=== PATIENT | male | born 1980 | race Caucasian/White ===

== ENCOUNTER 2022-02-28 10:41 | Outpatient (CLI) | payer BC, SELFPAY ==
[2022-02-28 21:50] LABS: Chloride* 95 mmol/L (96-114)
[2022-02-28 21:51] LABS: Potassium* 4.2 mmol/L (3.6-5.1); Sodium* 134 mmol/L (135-149)
[2022-02-28 21:53] LABS: Alanine Aminotransferase* 68 U/L (4-50); Alkaline Phosphatase* 69 U/L (40-150); Aspartate Amino Transferase* 36 U/L (12-35); Bilirubin Total* 0.8 mg/dL (0.1-1.5); Blood Urea Nitrogen* 22 mg/dL (5-24); Carbon Dioxide* 28 mmol/L (20-32); Cholesterol* 204 mg/dL (90-199); Creatinine* 1.1 mg/dL (0.5-1.5); Estimated Glomerular Filt Rate 86 ml/min; Glucose* 89 mg/dL (60-115); Triglycerides* 116 mg/dL (40-149)
[2022-02-28 21:54] LABS: Calcium* 9.5 mg/dL (8.4-10.6); HDL Cholesterol* 55 mg/dL (>=40); LDL Cholesterol Calculated 126 mg/dL (<100)
== END 2022-02-28 10:42 | disposition home or self-care (01) ==
PROVIDERS: PCP Emergency Medicine; Visit Provider Emergency Medicine
DX: E78.00 Pure hypercholesterolemia, unspecified (principal); I10 Essential (primary) hypertension; R79.89 Other specified abnormal findings of blood chemistry
CPT/HCPCS: 80053; 80061

== ENCOUNTER 2023-04-16 15:24 | Outpatient (CLI) | payer OTHER, SELFPAY | END 2023-04-16 15:25 | disposition home or self-care (01) | PROVIDERS: PCP Emergency Medicine; Visit Provider Emergency Medicine | DX: E78.2 Mixed hyperlipidemia (principal); I10 Essential (primary) hypertension; R74.01 Elevation of levels of liver transaminase levels | CPT/HCPCS: 80053; 80061 ==

== ENCOUNTER 2024-05-05 15:29 | Outpatient (CLI) | payer OTHER, SELFPAY | END 2024-05-05 15:30 | disposition home or self-care (01) | PROVIDERS: PCP Emergency Medicine; Visit Provider Emergency Medicine | DX: E78.2 Mixed hyperlipidemia (principal); I10 Essential (primary) hypertension; R77.8 Other specified abnormalities of plasma proteins | CPT/HCPCS: 80048; 80061; 80076 ==

== ENCOUNTER 2024-05-14 08:59 | Outpatient (CLI) | payer OTHER, SELFPAY ==
--- NOTE | 2024-05-14 10:10 | P.ANES_ITS ---
Anesthesia Charges Start Date/Time Anesthesia Start Date: 05/14/24 Anesthesia Start Time: 09:35 Stop Date/Time Anesthesia Stop Date: 05/14/24 Anesthesia Stop Time: 10:08 Coding CPT Codes CPT Codes: ANES LWR INTST NDSC NOS - 33178 ([id number]) QK - BAILING MACHINE OPERATOR 2-4 CNCRNT ANES PROC, QX - TERRITORY SALES MANAGER MEDICAL SVC W/ MED DIRECTION, P3 - PATIENT W/SEVERE SYS DISEASE
--- NOTE | 2024-05-14 10:10 | W.ANESCHARGE ---
Anesthesia Charges Start Date/Time Anesthesia Start Date: 05/14/24 Anesthesia Start Time: 09:35 Stop Date/Time Anesthesia Stop Date: 05/14/24 Anesthesia Stop Time: 10:08 Coding CPT Codes CPT Codes: ANES LWR INTST NDSC NOS - 87398 ([id number]) QK - HOME HEALTH RN 2-4 CNCRNT ANES PROC, QX - BUSINESS SPECIALIST SVC W/ MED DIRECTION, P3 - PATIENT W/SEVERE SYS DISEASE
--- NOTE | 2024-05-14 10:13 | P.ANES_ITS ---
Anesthesia Charges Start Date/Time Anesthesia Start Date: 05/14/24 Anesthesia Start Time: 09:35 Stop Date/Time Anesthesia Stop Date: 05/14/24 Anesthesia Stop Time: 10:08 Coding CPT Codes CPT Codes: ANES LWR INTST NDSC NOS - 81037 ([id number]) P3 - PATIENT W/SEVERE SYS DISEASE, QK - CYBER POLICY AND STRATEGY PLANNER 2-4 CNCRNT ANES PROC, QX - GRAPHIC PRE PRESS TRADES WORKER SVC W/ MD MED DIRECTION
--- NOTE | 2024-05-14 10:13 | W.ANESCHARGE ---
Anesthesia Charges Start Date/Time Anesthesia Start Date: 05/14/24 Anesthesia Start Time: 09:35 Stop Date/Time Anesthesia Stop Date: 05/14/24 Anesthesia Stop Time: 10:08 Coding CPT Codes CPT Codes: ANES LWR INTST NDSC NOS - 25240 ([id number]) P3 - PATIENT W/SEVERE SYS DISEASE, QK - DIRECTOR SKILLS 2-4 CNCRNT ANES PROC, QX - IMAGING MANAGER SVC W/ MD MED DIRECTION
== END 2024-05-14 09:00 | disposition home or self-care (01) ==
LOC: OP CLINIC 09:00
PROVIDERS: PCP Emergency Medicine; Visit Provider Emergency Medicine
DX: K92.1 Melena (principal); D12.3 Benign neoplasm of transverse colon; D12.5 Benign neoplasm of sigmoid colon; K64.4 Residual hemorrhoidal skin tags
CPT/HCPCS: 00811; 45385; 88305; J2704

== ENCOUNTER 2024-05-18 06:20 | Day surgery (SDC) | payer OTHER, SELFPAY ==
[2024-05-18] VITALS (24 sets, daily range): BP systolic 110–217; BP diastolic 66–118; PULSE 57–102; RESP 10–20; TEMP 36.6–37; O2SAT 24–100; BMI 37.0
--- OUTSIDE RECORDS SUMMARY | 2024-05-18 06:22 | XMS_ITS | Continuity of Care Document ---
Author Name [id number] Address Unknown Organization Unknown Address Unknown Procedures FILTER APPLIED:Only known Procedures with Onset Date within the last 5 years Procedure Date Procedure Provider Additional Inform ation Status LIPID PANEL (42159) Comp leted COMPREHEN METABOLIC PANEL (18739) Completed Encounters FILTER APPLIED:Only known Encounters with Admission Date within the last 5 years Encounter Location Admission Discharge Billing Code [facility] Stoll
[2024-05-18] MEDS: 0.9 % SODIUM CHLORIDE 500 ML 500 ML 100 ML IV ×2 (06:45→08:45)
[2024-05-18] MEDS: SODIUM CHLORIDE 0.9 % (FLUSH) 10 ML SYRINGE IVF (06:45)
--- NOTE | 2024-05-18 07:38 | P.GSOP_ITS ---
Operative Note Date of procedure: 05/18/24 Pre-op diagnosis: Umbilical hernia Post-op diagnosis: Same Type of Procedure: Open mesh repair 2 cm umbilical hernia Indications: The patient is a 43-year-old male who has an increasingly symptomatic umbilical hernia. After discussion of options as well as risks and benefits of the procedure, he elected to have this repaired. Procedure Description: After discussing the risks and benefits of the procedure, the patient signed informed consent.? The operative site was marked and the patient was brought to the operating room and placed on the operating table in supine position.? Care was taken to pad the patient's pressure points.?? The patient was then intubated by anesthesia.?? The operative site was then prepped and draped in the usual sterile fashion.? A time-out was then performed. Local anesthetic was injected into the fascia, skin and subcutaneous tissues. A curvilinear incision was made just below the umbilicus. Dissection was carried down into the subcutaneous tissue using cautery. The hernia sac was encountered and care was taken to not enter it. Dissection was taken down to the fascia, and the umbilical stalk was carefully dissected off of the hernia sac. Once the hernia sac was dissected out circumferentially, it was reduced. The fascial edges were then cleared circumferentially. The hernia was 2 cm in size and so the decision was made to use a piece of mesh. A preperitoneal pocket was created using a combination of blunt dissection and cautery. Hemostasis appeared adequate. Once the posterior fascia was clear, a piece of [address] hernia mesh was placed in the preperitoneal space with care to ensure that it laid flat. This was secured into place using 2 0 PDS interrupted sutures. The tails were then trimmed and the fascial opening was closed with a running 0 Vicryl. The umbilicus was reapproximated to the fascia. The skin was then closed with running absorbable suture. Glue and a sterile dressing was then applied. The patient was then woken and transported to the recovery area in stable c ondition. ? The patient tolerated the procedure well. Findings: 2 cm fat containing umbilical hernia Implants: Ventralex ST mesh Anesthesia: GETA Surgeon: Frances Lopez MD Estimated blood loss (mL): 5 Condition: stable Disposition: PACU
--- NOTE | 2024-05-18 07:38 | W.PM.H&PU ---
History & Physical Update History & Physical Update H&P Reviewed and patient assessed: No changes noted
[2024-05-18] MEDS: CEFAZOLIN 2 GM INJ IVP (07:42)
[2024-05-18] MEDS: BUPIVACAINE 0.25% 30 ML 20 ML INJECTION (08:20)
--- NOTE | 2024-05-18 09:00 | P.ANES_ITS ---
Anesthesia Charges Start Date/Time Anesthesia Start Date: 05/18/24 Anesthesia Start Time: 07:30 Stop Date/Time Anesthesia Stop Date: 05/18/24 Anesthesia Stop Time: 08:58 Coding CPT Codes CPT Codes: ANESTH REPAIR OF HERNIA - 38355 ([id number]) P3 - PATIENT W/SEVERE SYS DISEASE, QZ - EVALUATOR TRANSFER STUDENTS SVC W/O CIGARETTE FILTER INSPECTOR BY
--- NOTE | 2024-05-18 09:00 | W.ANESCHARGE ---
Anesthesia Charges Start Date/Time Anesthesia Start Date: 05/18/24 Anesthesia Start Time: 07:30 Stop Date/Time Anesthesia Stop Date: 05/18/24 Anesthesia Stop Time: 08:58 Coding CPT Codes CPT Codes: ANESTH REPAIR OF HERNIA - 61691 ([id number]) P3 - PATIENT W/SEVERE SYS DISEASE, QZ - ELECTRICAL AND INSTRUMENT TECHNICIAN SVC W/O MENU PLANNER BY
[2024-05-18] MEDS: ALBUTEROL SULFATE 2.5 MG/3 ML VIAL.NEB NEB ×2 (09:10→09:25)
--- NOTE | 2024-05-18 10:57 | SUR.PHASEI ---
Patient arrived to PACU at 0845. Patient was not maintaining saturation or responding to stimuli, see VS charting. Wade & MARK Quiñoness at bedside. A total of 55mg of Labetalol given by DRY ROLLER. Patient was given Albuterol nebs x2. Endo monitor was retrieved for end tidal monitoring - end tidal was 27. At 1000 Arsenio, DRY ROLLER gave the OK to return to [facility].
[2024-05-18] MEDS: LABETALOL HCL 5 MG/ML inj IVP (11:00)
--- NOTE | 2024-05-18 12:40 | SUR.PHASEII ---
Approved by MARK Quiñones for discharge.
== END 2024-05-18 12:41 | disposition home or self-care (01) ==
PROVIDERS: PCP Emergency Medicine; Visit Provider Surgery
PROC: (CPT 49591; principal; 2024-05-18 07:30)
DX: K42.9 Umbilical hernia without obstruction or gangrene (principal)
CPT/HCPCS: 49591; 00830; 94640; C1781; J0330; J0665; J0690; J1100; J1885; J2250; J2405; J2704; J2710; J3010; J3490; J7030

== ENCOUNTER 2024-10-06 15:00 | Outpatient (CLI) | payer OTHER, SELFPAY | END 2024-10-06 15:01 | disposition home or self-care (01) | LOC: NFLDREF 10-08 15:29 | PROVIDERS: PCP Emergency Medicine; Visit Provider Emergency Medicine | DX: E78.2 Mixed hyperlipidemia (principal); R74.01 Elevation of levels of liver transaminase levels; R53.83 Other fatigue | CPT/HCPCS: 80061; 80076; 84403 ==